=== PATIENT | male | born 1950 | race Caucasian/White ===

== ENCOUNTER → 2018-06-23 | Outpatient (CLI) | payer OTHER, MEDICARE | END | disposition home or self-care (01) | LOC: RAH 12:15 | PROVIDERS: ATTEND Family Medicine | DX: R90.82 White matter disease, unspecified (principal); R11.0 Nausea; R42 Dizziness and giddiness | CPT/HCPCS: 70450 ==

== ENCOUNTER → 2018-11-04 | Outpatient (CLI) | payer OTHER, MEDICARE | END | disposition home or self-care (01) | LOC: OIH 10:44 | PROVIDERS: ATTEND Family Medicine | DX: J34.2 Deviated nasal septum (principal) | CPT/HCPCS: 70220 ==